=== PATIENT | male | born 1970 | race Hispanic/Latino ===

== ENCOUNTER 2021-12-11 07:01 | Day surgery (SDC) | payer MEDICAID ==
[2021-12-10 13:22] LABS: INR 0.96 (0.85-1.15); PROTHROMBIN TIME 10.5 SEC (9.6-11.6)
[2021-12-10 13:24] LABS: PARTIAL THROMBOPLASTIN TIME 28.2 SEC (26.3-35.5)
[~2021-12-11] VITALS: Ht 190.5 cm; Wt 204.1 kg
[~2021-12-11 07:01] MED LIST: 0.9% NACL 500ML IV.SOLN 500 ML IV SCH; 0.9%NACL 1000ML 1,000 ML IV ONE; ALBU8.5H8 IH; ATOR10TA69 PO; BUDE10.2 IH; CEFAZOLIN SODIUM 1 GM VIAL IVP SCH; FLUT15.845 NS; LOSA25TA41 PO; METF-446 PO; PREG300C19 PO; TIOT18CA3 IH
[2021-12-11 07:18] VITALS: BP 136/66
[2021-12-11] MEDS ORDERED: SODIUM TETRADECYL SULFATE 30 MG/ML VIAL IV SCH (07:30)
[2021-12-11] MEDS ORDERED: LIDOCAINE PF 100MG/5ML (2%) SYRINGE 5ML ONE (07:45)
[2021-12-11] MEDS ORDERED: SUCCINYLCHOLINE CHLORIDE 20 MG/ML 10 ML VIAL ONE (07:45)
[2021-12-11] MEDS ORDERED: PROPOFOL 10 MG/ML 20ML VIAL IV ONE (07:46)
[2021-12-11] MEDS ORDERED: ONDANSETRON 4MG INJ ONE (07:46)
[2021-12-11] MEDS ORDERED: GLYCOPYRROLATE 1 MG/5 ML SYRINGE ONE (07:46)
[2021-12-11] MEDS ORDERED: NEOSTIGMINE 5MG/5ML SYR IV ONE (07:46)
[2021-12-11] MEDS ORDERED: DEXAMETHASONE SOD PHOSPHATE 10MG/ML 1ML VIAL ONE (07:46)
[2021-12-11] MEDS ORDERED: MIDAZOLAM HCL 1 MG/ML 2ML VIAL ONE (07:46)
[2021-12-11] MEDS ORDERED: FENTANYL CITRATE PF 50 MCG/1 ML 2ML VIAL ONE (07:47)
[2021-12-11] MEDS ORDERED: ROCURONIUM 10MG/1ML SYR 10 MG/ML ML ONE (07:47)
[2021-12-11] MEDS ORDERED: POLY17PO4 PO (11:27)
[2021-12-11] MEDS ORDERED: NA P133E4 RC (11:27)
== END 2021-12-11 08:45 | disposition home or self-care (01) ==
LOC: DAH 07:01
PROVIDERS: ATTEND Surgery
DX: R13.10 Dysphagia, unspecified (principal); R11.0 Nausea; K59.00 Constipation, unspecified; R63.4 Abnormal weight loss; Z79.01 Long term (current) use of anticoagulants; Z79.899 Other long term (current) drug therapy; Z53.8 Procedure and treatment not carried out for other reasons
CPT/HCPCS: 87635; 85610; 85730; 36415 ×2; 99284; 80053; 83690; 85025; 82948; C9803; J3490 ×2; J2710; J0330; J7030; 93005; J1100; J2001; J2250; J2405; J2704; J3010

== ENCOUNTER 2021-12-11 09:15 | Emergency (ER) | payer MEDICAID ==
[~2021-12-11] VITALS: Ht 190.5 cm; Wt 204.1 kg
[~2021-12-11 09:15] MED LIST changes: -0.9% NACL 500ML IV.SOLN 500 ML IV SCH; -0.9%NACL 1000ML 1,000 ML IV ONE; -CEFAZOLIN SODIUM 1 GM VIAL IVP SCH
[2021-12-11 09:19] VITALS: BP 127/81
[2021-12-11 10:39] LABS: BASOPHILS % (AUTO) 0.4 % (0.0-5.0); EOSINOPHILS % (AUTO) 0.6 % (0.0-8.0); HEMATOCRIT 41.2 % (42-54); LYMPHOCYTES % (AUTO) 16.6 % (21.0-51.0); MEAN CORPUSCULAR HEMOGLOBIN 29.3 pg (27.0-33.0); MEAN CORPUSCULAR HGB CONC 32.5 g/dL (32.0-36.0); MONOCYTES % (AUTO) 5.9 % (3.0-13.0); PLATELET COUNT (AUTO) 227 K/uL (130-400); RED BLOOD CELL COUNT(AUTO) 4.58 MIL/uL (4.50-6.20); RED CELL DISTRIBUTION WIDTH 12.3 % (11.0-15.5); WHITE BLOOD COUNT (AUTO) 9.5 K/uL (4.8-10.8)
[2021-12-11 11:00] LABS: CREATININE 1.4 mg/dL (0.5-1.5); POTASSIUM 4.5 mmol/L (3.5-5.1)
[2021-12-11 11:07] LABS: ALBUMIN 3.4 g/dL (3.5-5.0); BILIRUBIN,TOTAL 0.4 mg/dL (0.2-1.0); TOTAL PROTEIN, SERUM 7.4 g/dL (6.0-8.3)
[2021-12-11] MEDS ORDERED: POLY17PO4 PO (11:27)
[2021-12-11] MEDS ORDERED: NA P133E4 RC (11:27)
== END 2021-12-11 11:50 | disposition home or self-care (01) ==
LOC: EDH 09:15
DX: K59.00 Constipation, unspecified (principal); J45.909 Unspecified asthma, uncomplicated; E11.9 Type 2 diabetes mellitus without complications; I10 Essential (primary) hypertension; Z88.1 Allergy status to other antibiotic agents; Z88.2 Allergy status to sulfonamides; Z79.51 Long term (current) use of inhaled steroids; Z79.84 Long term (current) use of oral hypoglycemic drugs; Z79.899 Other long term (current) drug therapy
CPT/HCPCS: 36415; 80053; 83690; 85025

== ENCOUNTER 2022-02-19 06:09 | Day surgery (SDC) | payer MEDICAID ==
[~2022-02-19] VITALS: Ht 190.5 cm; Wt 204.1 kg
[2022-02-19] VITALS (12 sets, daily range): BP systolic 113–156; BP diastolic 53–73
[~2022-02-19 06:09] MED LIST changes: +0.9% NACL 500ML IV.SOLN 500 ML IV SCH; -ATOR10TA69 PO; -FLUT15.845 NS; -TIOT18CA3 IH
[2022-02-19] MEDS ORDERED: SODIUM TETRADECYL SULFATE 30 MG/ML VIAL IV SCH (08:30)
[2022-02-19] MEDS ORDERED: PROPOFOL 10 MG/ML 20ML VIAL IV ONE (09:33)
[2022-02-19] MEDS ORDERED: SUCCINYLCHOLINE 200MG/10ML SYR ONE (09:34)
[2022-02-19] MEDS ORDERED: MEPERIDINE-PF 25 MG/ML SYG ONE (09:47)
== END 2022-02-19 11:00 | disposition home or self-care (01) ==
LOC: DAH 06:09 → ENDO 06:09
PROVIDERS: ATTEND Surgery
DX: K21.9 Gastro-esophageal reflux disease without esophagitis (principal); M79.3 Panniculitis, unspecified; I10 Essential (primary) hypertension; E11.9 Type 2 diabetes mellitus without complications; J45.909 Unspecified asthma, uncomplicated; G47.30 Sleep apnea, unspecified; Z98.84 Bariatric surgery status; Z88.1 Allergy status to other antibiotic agents; Z98.890 Other specified postprocedural states
CPT/HCPCS: 87426 ×3; 43236; 82948 ×2; J0330; J3490 ×2; A4215; A4223; A4222; A4221; A4663; A4606; J2175; J2704

== ENCOUNTER 2022-04-12 07:16 | Day surgery (SDC) | payer MEDICAID ==
[2022-04-09 16:40] LABS: CREATININE 1.3 mg/dL (0.5-1.5); POTASSIUM 4.2 mmol/L (3.5-5.1)
[2022-04-12] VITALS (9 sets, daily range): BP systolic 103–158; BP diastolic 57–80
[~2022-04-12] VITALS: Ht 190.5 cm; Wt 217.7 kg
[~2022-04-12 07:16] MED LIST changes: -0.9% NACL 500ML IV.SOLN 500 ML IV SCH; +ATOR10TA69 PO
[2022-04-12] MEDS ORDERED: SODIUM TETRADECYL SULFATE 30 MG/ML 2 ML VIAL IV SCH (08:00)
[2022-04-12] MEDS ORDERED: 0.9%NACL 1000ML 1,000 ML IV ONE (08:15)
[2022-04-12] MEDS ORDERED: PROPOFOL 10 MG/ML 20ML VIAL IV ONE ×2 (10:18→10:28)
[2022-04-12] MEDS ORDERED: MIDAZOLAM HCL 1 MG/ML 2ML VIAL ONE (10:18)
[2022-04-12] MEDS ORDERED: FENTANYL CITRATE PF 50 MCG/1 ML 2ML VIAL ONE (10:18)
[2022-04-12] MEDS ORDERED: SUCCINYLCHOLINE 200MG/10ML SYR ONE (10:20)
[2022-04-12] MEDS ORDERED: IPRATROPIUM/ALBUTEROL SULFATE 3 ML SOLUTION IH ONE (10:54)
== END 2022-04-12 11:45 | disposition home or self-care (01) ==
LOC: ENDO 07:16 → DAH 07:16 → ENDO 11:45
PROVIDERS: ATTEND Surgery
DX: K21.9 Gastro-esophageal reflux disease without esophagitis (principal); R13.10 Dysphagia, unspecified; I10 Essential (primary) hypertension; E66.01 Morbid (severe) obesity due to excess calories; E11.9 Type 2 diabetes mellitus without complications; G47.30 Sleep apnea, unspecified; J45.909 Unspecified asthma, uncomplicated; Z90.49 Acquired absence of other specified parts of digestive tract; Z98.84 Bariatric surgery status; Z90.89 Acquired absence of other organs; Z98.890 Other specified postprocedural states; Z79.899 Other long term (current) drug therapy; Z82.49 Family history of ischemic heart disease and other diseases of the circulatory system; Z83.3 Family history of diabetes mellitus; Z68.44 Body mass index [BMI] 60.0-69.9, adult
CPT/HCPCS: 87426; 80048; 36415; 93005; 43236; 82948; 94640; J3010; J0330; J7030 ×2; J2250; J3490 ×3; A4620; A4215 ×2; A4223; A4657; A4222; A4221; A4663; A4606; J2704

== ENCOUNTER 2022-04-26 07:53 | Inpatient (IN) | payer MEDICAID ==
[2022-04-22 10:34] LABS: BASOPHILS % (AUTO) 0.6 % (0.0-5.0); EOSINOPHILS % (AUTO) 0.6 % (0.0-8.0); HEMATOCRIT 39.1 % (42-54); LYMPHOCYTES % (AUTO) 17.7 % (21.0-51.0); MEAN CORPUSCULAR HEMOGLOBIN 28.8 pg (27.0-33.0); MEAN CORPUSCULAR HGB CONC 31.7 g/dL (32.0-36.0); MEAN CORPUSCULAR VOLUME 90.9 fL (79-99); MONOCYTES % (AUTO) 6.5 % (3.0-13.0); PLATELET COUNT (AUTO) 188 K/uL (130-400); RED CELL DISTRIBUTION WIDTH 13.1 % (11.0-15.5); WHITE BLOOD COUNT (AUTO) 6.3 K/uL (4.8-10.8)
[2022-04-22 10:42] LABS: APPEARANCE,URINE CLOUDY (CLEAR); BILIRUBIN,URINE NEGATIVE (NEGATIVE); COLOR,URINE YELLOW (YELLOW); GLUCOSE, URINE (UA) NEGATIVE (NEGATIVE); KETONES,URINE NEGATIVE (NEGATIVE); LEUKOCYTE ESTERASE ,URINE MODERATE Leu/uL (NEGATIVE); NITRATE,URINE POSITIVE (NEGATIVE); OCCULT BLOOD,URINE NEGATIVE (NEGATIVE); PROTEIN,URINE NEGATIVE (NEGATIVE); UROBILINOGEN,URINE 0.2 mg/dL (0.2-1.0)
[2022-04-22 10:45] LABS: INR 0.98 (0.85-1.15); PROTHROMBIN TIME 10.7 SEC (9.6-11.6)
[2022-04-22 10:46] LABS: PARTIAL THROMBOPLASTIN TIME 27.9 SEC (26.3-35.5)
[2022-04-22 10:47] LABS: POTASSIUM 4.7 mmol/L (3.5-5.1)
[2022-04-22 11:51] LABS: BACTERIA,URINE Moderate /HPF (None Seen)
[2022-04-23 10:09] VITALS: BP 144/71
[2022-04-26] VITALS (17 sets, daily range): BP systolic 78–142; BP diastolic 41–70
[~2022-04-26] VITALS: Ht 190.5 cm; Wt 189.6 kg
[~2022-04-26 07:53] MED LIST changes: +0.9%NACL 1000ML 1,000 ML IV SCH; +CEFAZOLIN SODIUM 1 GM VIAL IVP SCH
[2022-04-26] MEDS ORDERED: SUCCINYLCHOLINE CHLORIDE 20 MG/ML 10 ML VIAL ONE (09:32)
[2022-04-26] MEDS ORDERED: LIDOCAINE PF 100MG/5ML (2%) SYRINGE 5ML ONE (09:32)
[2022-04-26] MEDS ORDERED: GLYCOPYRROLATE 1 MG/5 ML SYRINGE ONE (09:33)
[2022-04-26] MEDS ORDERED: MIDAZOLAM HCL 1 MG/ML 2ML VIAL ONE (09:33)
[2022-04-26] MEDS ORDERED: DEXAMETHASONE SOD PHOSPHATE 10MG/ML 1ML VIAL ONE (09:33)
[2022-04-26] MEDS ORDERED: FENTANYL CITRATE PF 50 MCG/1 ML 2ML VIAL ONE (09:34)
[2022-04-26] MEDS ORDERED: ROCURONIUM 10MG/1ML SYR 10 MG/ML ML ONE ×2 (09:34→11:34)
[2022-04-26] MEDS ORDERED: NEOSTIGMINE 5MG/5ML SYR IV ONE (09:34)
[2022-04-26] MEDS ORDERED: PROPOFOL 10 MG/ML 20ML VIAL IV ONE (09:34)
[2022-04-26] MEDS ORDERED: ONDANSETRON 4MG INJ ONE (09:34)
[2022-04-26] MEDS ORDERED: CEFAZOLIN SODIUM 3 GM VIAL IV ONE (09:45)
[2022-04-26] MEDS ORDERED: MORPHINE PF 100MG/10ML AMP IV ONE (10:47)
[2022-04-26] MEDS ORDERED: EPHEDRINE SULFATE 50 MG/ML AMPULE ONE (11:16)
[2022-04-26] MEDS ORDERED: SUGAMMADEX SODIUM 200 MG/2 ML VIAL IV ONE (13:29)
[2022-04-26] MEDS ORDERED: MEPERIDINE-PF 25 MG/ML SYG ONE ×2 (14:45→14:56)
[2022-04-26] MEDS ORDERED: MORPHINE 4 MG SYG IVP PRN (17:30)
[2022-04-26] MEDS ORDERED: 0.9%NACL 1000ML 1,000 ML IV SCH (17:30)
[2022-04-26] MEDS: METFORMIN HCL 500 MG TABLET PO SCH (17:52)
[2022-04-26] MEDS: CEFAZOLIN SODIUM 1 GM VIAL IVP SCH (17:52)
[2022-04-26] MEDS: KETOROLAC 30MG VIAL (30MG/ML) IVP PRN (17:52)
[2022-04-26] MEDS: PROAIR IH SCH (19:48)
[2022-04-26] MEDS: SYMBICORT 160/4.5 IH SCH (19:49)
[2022-04-26] MEDS ORDERED: NON-FORMULARY MEDICATION 1 EACH (Metformin HCl 1,000 MG) PO SCH (21:00)
[2022-04-26] MEDS ORDERED: ALBUTEROL INHALER 90MCG/INH IH SCH (21:00)
[2022-04-26] MEDS ORDERED: SUB PER P&T FOR ASTHMA OR COPD RECOMMENDATION IH SCH (21:00)
[2022-04-26] MEDS: ONDANSETRON 4MG INJ IVP PRN (23:14)
[2022-04-27] VITALS (53 sets, daily range): BP systolic 79–124; BP diastolic 33–59
[2022-04-27] MEDS: CEFAZOLIN SODIUM 1 GM VIAL IVP SCH ×3 (01:00→12:49)
[2022-04-27] MEDS ORDERED: LACTATED RINGERS 1000ML 1,000 ML IV ONE (02:40)
[2022-04-27 02:51] LABS: HEMATOCRIT 24.2 % (42-54); MEAN CORPUSCULAR HEMOGLOBIN 29.2 pg (27.0-33.0); MEAN CORPUSCULAR HGB CONC 32.6 g/dL (32.0-36.0); MEAN CORPUSCULAR VOLUME 89.3 fL (79-99); RED BLOOD CELL COUNT(AUTO) 2.71 MIL/uL (4.50-6.20); RED CELL DISTRIBUTION WIDTH 13.4 % (11.0-15.5); WHITE BLOOD COUNT (AUTO) 15.8 K/uL (4.8-10.8)
[2022-04-27] MEDS ORDERED: LACTATED RINGERS 1000ML 4,000 ML IV ONE (03:10)
[2022-04-27] MEDS: LACTATED RINGERS 1000ML 1,000 ML IV SCH ×4 (03:40→23:00)
[2022-04-27] MEDS: KETOROLAC 30MG VIAL (30MG/ML) IVP PRN ×2 (03:45→09:04)
[2022-04-27] MEDS: ONDANSETRON 4MG INJ IVP PRN (05:47)
[2022-04-27] MEDS: METFORMIN HCL 500 MG TABLET PO SCH ×2 (08:00→17:00)
[2022-04-27] MEDS ORDERED: LOSARTAN 25 MG TABLET PO SCH (09:00)
[2022-04-27] MEDS ORDERED: DOCUSATE SODIUM 100 MG CAP PO PRN (12:00)
[2022-04-27] MEDS ORDERED: IPRATROPIUM 0.5 MG/2.5 ML INH IH PRN (12:00)
[2022-04-27 14:04] LABS: INR 1.03 (0.85-1.15); PROTHROMBIN TIME 11.2 SEC (9.6-11.6)
[2022-04-27] MEDS: INSULIN HUMULIN R 100 UNIT/ML 3ML SQ SCH ×2 (16:30→20:13)
[2022-04-27 18:06] LABS: HEMATOCRIT 23.8 % (42-54)
[2022-04-27] MEDS: SYMBICORT 160/4.5 IH SCH (20:13)
[2022-04-27] MEDS: PROAIR IH SCH (20:13)
[2022-04-27] MEDS ORDERED: KETOROLAC 30MG VIAL (30MG/ML) ONE (20:47)
[2022-04-27] MEDS ORDERED: KETOROLAC 30MG VIAL (30MG/ML) IM SCH (21:00)
[2022-04-27] MEDS ORDERED: ACETAMINOPHEN 325 MG TAB PO PRN (21:00)
[2022-04-27] MEDS ORDERED: KETOROLAC 30MG VIAL (30MG/ML) IV PRN (21:30)
[2022-04-27 22:18] LABS: HEMATOCRIT 21.8 % (42-54)
[2022-04-28] VITALS (31 sets, daily range): BP systolic 97–138; BP diastolic 46–99
[2022-04-28 01:03] LABS: HEMATOCRIT 20.9 % (42-54)
[2022-04-28] MEDS: CEFAZOLIN SODIUM 1 GM VIAL IVP SCH ×3 (01:13→17:06)
[2022-04-28] MEDS ORDERED: KETOROLAC 30MG VIAL (30MG/ML) IV SCH (03:00)
[2022-04-28 03:46] LABS: HEMATOCRIT 20.7 % (42-54)
[2022-04-28 04:42] LABS: MEAN CORPUSCULAR HEMOGLOBIN 28.9 pg (27.0-33.0); MEAN CORPUSCULAR HGB CONC 33.5 g/dL (32.0-36.0); MEAN CORPUSCULAR VOLUME 86.2 fL (79-99); RED BLOOD CELL COUNT(AUTO) 2.39 MIL/uL (4.50-6.20); WHITE BLOOD COUNT (AUTO) 8.2 K/uL (4.8-10.8)
[2022-04-28 04:44] LABS: CREATININE 1.6 mg/dL (0.5-1.5); POTASSIUM 4.1 mmol/L (3.5-5.1)
[2022-04-28] MEDS: LACTATED RINGERS 1000ML 1,000 ML IV SCH ×2 (05:30→12:36)
[2022-04-28] MEDS: INSULIN HUMULIN R 100 UNIT/ML 3ML SQ SCH ×4 (06:08→20:52)
[2022-04-28] MEDS: ACETAMINOPHEN 325 MG TAB PO PRN ×2 (07:09→17:34)
[2022-04-28 09:01] LABS: HEMATOCRIT 21.7 % (42-54)
[2022-04-28] MEDS: FENTANYL 12 MCG/HR PATCH TD SCH (11:10)
[2022-04-28 15:07] LABS: HEMATOCRIT 22.1 % (42-54)
[2022-04-28] MEDS: GABAPENTIN 100 MG CAPSULE PO SCH (20:52)
[2022-04-28] MEDS: SYMBICORT 160/4.5 IH SCH (21:00)
[2022-04-28] MEDS: PROAIR IH SCH (21:00)
[2022-04-28 21:07] LABS: HEMATOCRIT 21.7 % (42-54)
[2022-04-29] VITALS (30 sets, daily range): BP systolic 107–146; BP diastolic 48–77
[2022-04-29] MEDS: CEFAZOLIN SODIUM 1 GM VIAL IVP SCH ×3 (03:00→17:19)
[2022-04-29 04:03] LABS: BASOPHILS % (AUTO) 0.4 % (0.0-5.0); EOSINOPHILS % (AUTO) 0.6 % (0.0-8.0); HEMATOCRIT 23.6 % (42-54); MEAN CORPUSCULAR HEMOGLOBIN 28.7 pg (27.0-33.0); MEAN CORPUSCULAR HGB CONC 33.1 g/dL (32.0-36.0); MEAN CORPUSCULAR VOLUME 86.8 fL (79-99); MONOCYTES % (AUTO) 8.4 % (3.0-13.0); NEUTROPHILS % (AUTO) 72.7 % (40.0-77.0); PLATELET COUNT (AUTO) 140 K/uL (130-400); RED BLOOD CELL COUNT(AUTO) 2.72 MIL/uL (4.50-6.20); RED CELL DISTRIBUTION WIDTH 14.8 % (11.0-15.5); WHITE BLOOD COUNT (AUTO) 7.8 K/uL (4.8-10.8)
[2022-04-29 04:09] LABS: ALBUMIN 2.4 g/dL (3.5-5.0); POTASSIUM 4.1 mmol/L (3.5-5.1); TOTAL PROTEIN, SERUM 5.5 g/dL (6.0-8.3)
[2022-04-29] MEDS: ACETAMINOPHEN 325 MG TAB PO PRN ×3 (04:28→21:34)
[2022-04-29] MEDS: INSULIN HUMULIN R 100 UNIT/ML 3ML SQ SCH ×4 (06:06→21:00)
[2022-04-29] MEDS: GABAPENTIN 100 MG CAPSULE PO SCH ×3 (08:22→21:03)
[2022-04-29 08:39] LABS: HEMATOCRIT 23.7 % (42-54)
[2022-04-29] MEDS ORDERED: SIMETHICONE 40 MG/0.6 ML ML PO SCH (09:00)
[2022-04-29] MEDS: SIMETHICONE 80 MG TAB.CHEW PO SCH ×3 (09:22→21:03)
[2022-04-29] MEDS: ONDANSETRON 4MG INJ IVP PRN (12:08)
[2022-04-29 15:08] LABS: HEMATOCRIT 24.6 % (42-54)
[2022-04-29] MEDS: SYMBICORT 160/4.5 IH SCH (21:00)
[2022-04-29] MEDS: PROAIR IH SCH (21:00)
[2022-04-30] VITALS (28 sets, daily range): BP systolic 85–150; BP diastolic 44–99
[2022-04-30] MEDS: CEFAZOLIN SODIUM 1 GM VIAL IVP SCH ×3 (01:12→18:18)
[2022-04-30 03:32] LABS: BASOPHILS % (AUTO) 0.4 % (0.0-5.0); EOSINOPHILS % (AUTO) 1.4 % (0.0-8.0); HEMATOCRIT 23.3 % (42-54); LYMPHOCYTES % (AUTO) 20.2 % (21.0-51.0); MEAN CORPUSCULAR HEMOGLOBIN 28.3 pg (27.0-33.0); MEAN CORPUSCULAR HGB CONC 32.2 g/dL (32.0-36.0); MEAN CORPUSCULAR VOLUME 87.9 fL (79-99); MONOCYTES % (AUTO) 7.7 % (3.0-13.0); NEUTROPHILS % (AUTO) 69.4 % (40.0-77.0); PLATELET COUNT (AUTO) 142 K/uL (130-400); RED BLOOD CELL COUNT(AUTO) 2.65 MIL/uL (4.50-6.20); RED CELL DISTRIBUTION WIDTH 14.8 % (11.0-15.5); WHITE BLOOD COUNT (AUTO) 6.9 K/uL (4.8-10.8)
[2022-04-30] MEDS: ACETAMINOPHEN 325 MG TAB PO PRN ×2 (03:36→16:24)
[2022-04-30] MEDS: INSULIN HUMULIN R 100 UNIT/ML 3ML SQ SCH ×4 (06:48→20:50)
[2022-04-30] MEDS: GABAPENTIN 100 MG CAPSULE PO SCH ×3 (09:17→21:07)
[2022-04-30] MEDS: SIMETHICONE 80 MG TAB.CHEW PO SCH ×3 (09:17→21:07)
[2022-04-30 12:02] LABS: HEMATOCRIT 26.7 % (42-54)
[2022-04-30 19:56] LABS: HEMATOCRIT 24.2 % (42-54)
[2022-04-30] MEDS: PROAIR IH SCH (22:00)
[2022-04-30] MEDS: SYMBICORT 160/4.5 IH SCH (22:00)
[2022-05-01] MEDS: CEFAZOLIN SODIUM 1 GM VIAL IVP SCH ×3 (02:12→18:13)
[2022-05-01 04:30] VITALS: BP 136/71
[2022-05-01 04:58] LABS: BASOPHILS % (AUTO) 0.5 % (0.0-5.0); EOSINOPHILS % (AUTO) 1.8 % (0.0-8.0); HEMATOCRIT 24.1 % (42-54); LYMPHOCYTES % (AUTO) 16.7 % (21.0-51.0); MEAN CORPUSCULAR HEMOGLOBIN 28.9 pg (27.0-33.0); MEAN CORPUSCULAR HGB CONC 32.4 g/dL (32.0-36.0); MEAN CORPUSCULAR VOLUME 89.3 fL (79-99); MONOCYTES % (AUTO) 8.5 % (3.0-13.0); NEUTROPHILS % (AUTO) 71.2 % (40.0-77.0); PLATELET COUNT (AUTO) 178 K/uL (130-400); RED CELL DISTRIBUTION WIDTH 14.7 % (11.0-15.5); WHITE BLOOD COUNT (AUTO) 7.8 K/uL (4.8-10.8)
[2022-05-01 05:13] LABS: CREATININE 0.9 mg/dL (0.5-1.5); POTASSIUM 4.1 mmol/L (3.5-5.1)
[2022-05-01] MEDS: INSULIN HUMULIN R 100 UNIT/ML 3ML SQ SCH ×4 (06:32→20:34)
[2022-05-01 07:05] VITALS: BP 126/60
[2022-05-01] MEDS: SIMETHICONE 80 MG TAB.CHEW PO SCH ×3 (09:13→20:35)
[2022-05-01] MEDS: GABAPENTIN 100 MG CAPSULE PO SCH ×3 (09:14→20:35)
[2022-05-01 11:05] VITALS: BP 136/72
[2022-05-01 13:45] LABS: HEMATOCRIT 24.8 % (42-54)
[2022-05-01] MEDS: FENTANYL 12 MCG/HR PATCH TD SCH (14:24)
[2022-05-01 16:10] VITALS: BP 145/75
[2022-05-01] MEDS: FUROSEMIDE 20MG VIAL IV SCH (16:29)
[2022-05-01 20:40] VITALS: BP 133/64
[2022-05-01] MEDS: PROAIR IH SCH (20:44)
[2022-05-01] MEDS: SYMBICORT 160/4.5 IH SCH (20:44)
[2022-05-01 23:50] VITALS: BP 123/59
[2022-05-02 00:37] LABS: HEMATOCRIT 23.3 % (42-54)
[2022-05-02] MEDS: CEFAZOLIN SODIUM 1 GM VIAL IVP SCH ×3 (01:17→18:39)
[2022-05-02] MEDS: FUROSEMIDE 20MG VIAL IV SCH ×2 (02:34→14:45)
[2022-05-02 03:57] VITALS: BP 126/65
[2022-05-02 05:11] LABS: HEMATOCRIT 24.9 % (42-54)
[2022-05-02 05:12] LABS: POTASSIUM 3.7 mmol/L (3.5-5.1)
[2022-05-02] MEDS: INSULIN HUMULIN R 100 UNIT/ML 3ML SQ SCH ×4 (05:42→19:57)
[2022-05-02 07:10] VITALS: BP 123/51
[2022-05-02] MEDS: SIMETHICONE 80 MG TAB.CHEW PO SCH ×3 (09:21→19:55)
[2022-05-02] MEDS: GABAPENTIN 100 MG CAPSULE PO SCH ×3 (09:21→19:55)
[2022-05-02] MEDS ORDERED: LEVOFLOXACIN 750 MG/D5W 150ML BAG IVPB SCH (11:00)
[2022-05-02 12:00] VITALS: BP 122/50
[2022-05-02 16:20] VITALS: BP 124/65
[2022-05-02] MEDS: ACETAMINOPHEN 325 MG TAB PO PRN (18:38)
[2022-05-02 20:06] VITALS: BP 126/75
[2022-05-02] MEDS: SYMBICORT 160/4.5 IH SCH (20:08)
[2022-05-02] MEDS: PROAIR IH SCH (20:08)
[2022-05-02 23:41] VITALS: BP 116/60
[2022-05-03 01:06] LABS: HEMATOCRIT 24.3 % (42-54)
[2022-05-03] MEDS: CEFAZOLIN SODIUM 1 GM VIAL IVP SCH ×3 (01:30→19:25)
[2022-05-03 03:54] VITALS: BP 123/62
[2022-05-03] MEDS: INSULIN HUMULIN R 100 UNIT/ML 3ML SQ SCH ×4 (06:22→21:00)
[2022-05-03 07:50] VITALS: BP 114/60
[2022-05-03 11:33] VITALS: BP 121/66
[2022-05-03 12:48] LABS: HEMATOCRIT 25.3 % (42-54)
[2022-05-03] MEDS: SIMETHICONE 80 MG TAB.CHEW PO SCH ×3 (12:55→20:06)
[2022-05-03] MEDS: GABAPENTIN 100 MG CAPSULE PO SCH ×3 (12:55→20:07)
[2022-05-03] MEDS: FUROSEMIDE 20 MG TABLET PO SCH (12:55)
[2022-05-03 16:58] VITALS: BP 123/65
[2022-05-03 20:06] VITALS: BP 112/59
[2022-05-03] MEDS: SYMBICORT 160/4.5 IH SCH (20:19)
[2022-05-03] MEDS: PROAIR IH SCH (20:20)
[2022-05-04] VITALS: BP 113/58
[2022-05-04 00:54] LABS: HEMATOCRIT 25.2 % (42-54)
[2022-05-04] MEDS: CEFAZOLIN SODIUM 1 GM VIAL IVP SCH ×3 (02:13→18:10)
[2022-05-04 04:00] VITALS: BP 121/68
[2022-05-04] MEDS: ACETAMINOPHEN 325 MG TAB PO PRN ×2 (04:34→15:03)
[2022-05-04] MEDS: INSULIN HUMULIN R 100 UNIT/ML 3ML SQ SCH ×4 (06:37→21:20)
[2022-05-04 08:00] VITALS: BP 123/75
[2022-05-04] MEDS: SIMETHICONE 80 MG TAB.CHEW PO SCH ×3 (09:42→21:19)
[2022-05-04] MEDS: FUROSEMIDE 20 MG TABLET PO SCH (09:42)
[2022-05-04] MEDS: GABAPENTIN 100 MG CAPSULE PO SCH ×3 (09:43→21:19)
[2022-05-04 11:51] LABS: HEMATOCRIT 27.3 % (42-54)
[2022-05-04 12:00] VITALS: BP 105/61
[2022-05-04 16:00] VITALS: BP 114/57
[2022-05-04] MEDS: ACETAMINOPHEN WITH CODEINE 1 TAB TAB PO PRN (18:10)
[2022-05-04 20:00] VITALS: BP 126/73
[2022-05-04] MEDS: SYMBICORT 160/4.5 IH SCH (21:00)
[2022-05-04] MEDS: PROAIR IH SCH (21:00)
[2022-05-05] VITALS: BP 128/58
[2022-05-05] MEDS: CEFAZOLIN SODIUM 1 GM VIAL IVP SCH ×3 (02:45→17:57)
[2022-05-05 04:00] VITALS: BP 131/64
[2022-05-05 06:05] LABS: BASOPHILS % (AUTO) 0.4 % (0.0-5.0); EOSINOPHILS % (AUTO) 2.6 % (0.0-8.0); HEMATOCRIT 24.9 % (42-54); MEAN CORPUSCULAR HEMOGLOBIN 28.7 pg (27.0-33.0); MEAN CORPUSCULAR HGB CONC 32.5 g/dL (32.0-36.0); MEAN CORPUSCULAR VOLUME 88.3 fL (79-99); MONOCYTES % (AUTO) 8.1 % (3.0-13.0); NEUTROPHILS % (AUTO) 72.8 % (40.0-77.0); PLATELET COUNT (AUTO) 260 K/uL (130-400); RED BLOOD CELL COUNT(AUTO) 2.82 MIL/uL (4.50-6.20); RED CELL DISTRIBUTION WIDTH 14.6 % (11.0-15.5); WHITE BLOOD COUNT (AUTO) 7.9 K/uL (4.8-10.8)
[2022-05-05] MEDS: ACETAMINOPHEN WITH CODEINE 1 TAB TAB PO PRN ×2 (06:16→18:12)
[2022-05-05 06:19] LABS: CREATININE 0.9 mg/dL (0.5-1.5); POTASSIUM 3.9 mmol/L (3.5-5.1)
[2022-05-05 07:10] VITALS: BP 108/59
[2022-05-05] MEDS: INSULIN HUMULIN R 100 UNIT/ML 3ML SQ SCH ×4 (07:30→21:09)
[2022-05-05] MEDS: FUROSEMIDE 20 MG TABLET PO SCH (08:37)
[2022-05-05] MEDS: GABAPENTIN 100 MG CAPSULE PO SCH ×3 (08:38→21:06)
[2022-05-05] MEDS: SIMETHICONE 80 MG TAB.CHEW PO SCH ×3 (08:38→21:06)
[2022-05-05] MEDS: ACETAMINOPHEN 325 MG TAB PO PRN (11:00)
[2022-05-05 11:10] VITALS: BP 134/60
[2022-05-05 15:15] VITALS: BP 108/44
[2022-05-05] MEDS: PROAIR IH SCH (21:06)
[2022-05-05] MEDS: SYMBICORT 160/4.5 IH SCH (21:07)
[2022-05-05 21:10] VITALS: BP 130/58
[2022-05-06 00:27] VITALS: BP 106/50
[2022-05-06] MEDS: CEFAZOLIN SODIUM 1 GM VIAL IVP SCH ×2 (01:21→09:12)
[2022-05-06 04:00] VITALS: BP 133/62
[2022-05-06] MEDS: INSULIN HUMULIN R 100 UNIT/ML 3ML SQ SCH ×2 (05:41→11:26)
[2022-05-06] MEDS: ACETAMINOPHEN WITH CODEINE 1 TAB TAB PO PRN (06:56)
[2022-05-06 07:10] VITALS: BP 120/57
[2022-05-06] MEDS: SIMETHICONE 80 MG TAB.CHEW PO SCH (09:11)
[2022-05-06] MEDS: FUROSEMIDE 20 MG TABLET PO SCH (09:12)
[2022-05-06] MEDS: GABAPENTIN 100 MG CAPSULE PO SCH (09:12)
[2022-05-06 11:10] VITALS: BP 144/63
== END 2022-05-06 12:59 | disposition home or self-care (01) | DRG 385 ==
LOC: DAH 07:53 → DAHIP 07:54 → OBSVTOIN 07:54 → 4CH 16:45 → 2BH 04-27 09:47 → 3AH 04-30 19:21
PROVIDERS: ADMIT Surgery; ATTEND Surgery
PROC: 5A09357 Assistance with Respiratory Ventilation, Less than 24 Consecutive Hours, Continuous Positive Airway Pressure (ICD-10-PCS; 2022-04-26)
PROC: 0JB80ZZ Excision of Abdomen Subcutaneous Tissue and Fascia, Open Approach (ICD-10-PCS; principal; 2022-04-26 10:18)
PROC: 5A09357 Assistance with Respiratory Ventilation, Less than 24 Consecutive Hours, Continuous Positive Airway Pressure (ICD-10-PCS; 2022-04-27)
PROC: 30233N1 Transfusion of Nonautologous Red Blood Cells into Peripheral Vein, Percutaneous Approach (ICD-10-PCS; 2022-04-27)
PROC: 5A09357 Assistance with Respiratory Ventilation, Less than 24 Consecutive Hours, Continuous Positive Airway Pressure (ICD-10-PCS; 2022-04-28)
PROC: 5A09357 Assistance with Respiratory Ventilation, Less than 24 Consecutive Hours, Continuous Positive Airway Pressure (ICD-10-PCS; 2022-04-29)
PROC: 5A09357 Assistance with Respiratory Ventilation, Less than 24 Consecutive Hours, Continuous Positive Airway Pressure (ICD-10-PCS; 2022-04-30)
PROC: 5A09357 Assistance with Respiratory Ventilation, Less than 24 Consecutive Hours, Continuous Positive Airway Pressure (ICD-10-PCS; 2022-05-01)
PROC: 5A09357 Assistance with Respiratory Ventilation, Less than 24 Consecutive Hours, Continuous Positive Airway Pressure (ICD-10-PCS; 2022-05-02)
PROC: 5A09357 Assistance with Respiratory Ventilation, Less than 24 Consecutive Hours, Continuous Positive Airway Pressure (ICD-10-PCS; 2022-05-03)
PROC: 5A09357 Assistance with Respiratory Ventilation, Less than 24 Consecutive Hours, Continuous Positive Airway Pressure (ICD-10-PCS; 2022-05-04)
PROC: 5A09357 Assistance with Respiratory Ventilation, Less than 24 Consecutive Hours, Continuous Positive Airway Pressure (ICD-10-PCS; 2022-05-05)
DX: M79.3 Panniculitis, unspecified (principal); J96.01 Acute respiratory failure with hypoxia; D62 Acute posthemorrhagic anemia; Z68.43 Body mass index [BMI] 50.0-59.9, adult; E11.65 Type 2 diabetes mellitus with hyperglycemia; B96.1 Klebsiella pneumoniae [K. pneumoniae] as the cause of diseases classified elsewhere; E66.01 Morbid (severe) obesity due to excess calories; J45.909 Unspecified asthma, uncomplicated; E78.5 Hyperlipidemia, unspecified; N39.0 Urinary tract infection, site not specified; G47.33 Obstructive sleep apnea (adult) (pediatric); I10 Essential (primary) hypertension; Z98.84 Bariatric surgery status
CPT/HCPCS: 36415; 76870; 80048; 80053; 80061; 81001; 82948; 85014; 85018; 85025; 85027; 85610; 85730; 86850; 86900; 86901; 86923; 87077; 87088; 87186; 87426; 88305; 94664; 97039; A4344; G0378; J0330; J0690; J1100; J1815; J1885; J1940; J2001; J2175; J2250; J2270; J2274; J2405; J2704; J2710; J3010; J3490; J7030; J7120; P9016

== ENCOUNTER 2022-05-18 16:04 | Emergency (ER) | payer MEDICAID ==
[~2022-05-18] VITALS: Ht 190.5 cm; Wt 193.2 kg
[~2022-05-18 16:04] MED LIST changes: -0.9%NACL 1000ML 1,000 ML IV SCH; -CEFAZOLIN SODIUM 1 GM VIAL IVP SCH
[2022-05-18] MEDS ORDERED: MORPHINE 4 MG SYG IVP ONE (16:30)
[2022-05-18] MEDS ORDERED: 0.9% NACL 250ML 250 ML IV ONE (16:30)
[2022-05-18] MEDS ORDERED: ONDANSETRON 4MG INJ IVP ONE (16:30)
[2022-05-18] MEDS ORDERED: MORPHINE 4 MG SYG ONE (16:42)
[2022-05-18] MEDS ORDERED: ONDANSETRON 4MG INJ ONE (16:42)
[2022-05-18 17:01] LABS: BASOPHILS % (AUTO) 0.6 % (0.0-5.0); EOSINOPHILS % (AUTO) 1.5 % (0.0-8.0); LYMPHOCYTES % (AUTO) 14.8 % (21.0-51.0); MEAN CORPUSCULAR HEMOGLOBIN 27.7 pg (27.0-33.0); MEAN CORPUSCULAR HGB CONC 31.8 g/dL (32.0-36.0); MEAN CORPUSCULAR VOLUME 87.2 fL (79-99); MONOCYTES % (AUTO) 7.3 % (3.0-13.0); PLATELET COUNT (AUTO) 338 K/uL (130-400); RED BLOOD CELL COUNT(AUTO) 3.21 MIL/uL (4.50-6.20); RED CELL DISTRIBUTION WIDTH 14.2 % (11.0-15.5); WHITE BLOOD COUNT (AUTO) 8.6 K/uL (4.8-10.8)
[2022-05-18 17:09] LABS: POTASSIUM 3.8 mmol/L (3.5-5.1)
[2022-05-18 17:16] LABS: ALBUMIN 2.6 g/dL (3.5-5.0); TOTAL PROTEIN, SERUM 6.3 g/dL (6.0-8.3)
[2022-05-18 17:54] VITALS: BP 112/50
[2022-05-18] MEDS ORDERED: DOCU-116 PO (18:04)
[2022-05-18] MEDS ORDERED: ACET-2079 PO (18:04)
== END 2022-05-18 18:57 | disposition home or self-care (01) ==
LOC: EDH 16:04
DX: R19.00 Intra-abdominal and pelvic swelling, mass and lump, unspecified site (principal); L76.82 Other postprocedural complications of skin and subcutaneous tissue; N50.89 Other specified disorders of the male genital organs; I10 Essential (primary) hypertension; E11.9 Type 2 diabetes mellitus without complications; Z98.890 Other specified postprocedural states; Z88.2 Allergy status to sulfonamides; Z79.899 Other long term (current) drug therapy; Z79.84 Long term (current) use of oral hypoglycemic drugs; Z79.51 Long term (current) use of inhaled steroids
CPT/HCPCS: 99284; 96374; 96361; 96375; 80053; 85025; 36415; 76870; J2405; J2270; J7050

== ENCOUNTER → 2022-05-20 | Outpatient (CLI) | payer MEDICAID ==
[~2022-05-20] MED LIST changes: +ACET-2079 PO; +DOCU-116 PO
== END | disposition home or self-care (01) ==
LOC: RAH 08:44
PROVIDERS: ATTEND Surgery
DX: L76.32 Postprocedural hematoma of skin and subcutaneous tissue following other procedure (principal)
CPT/HCPCS: 76705; 76882

== ENCOUNTER → 2022-05-24 | Outpatient (CLI) | payer MEDICAID | END | disposition home or self-care (01) | LOC: RAH 09:09 | PROVIDERS: ATTEND Surgery | DX: L76.82 Other postprocedural complications of skin and subcutaneous tissue (principal); Y83.8 Other surgical procedures as the cause of abnormal reaction of the patient, or of later complication, without mention of misadventure at the time of the procedure | CPT/HCPCS: 10005; 87071; 87077; 87186; 87205; A4215 ×2; 76942 ==

== ENCOUNTER 2022-07-02 01:58 | Emergency (ER) | payer MEDICAID ==
[~2022-07-02] VITALS: Ht 190.5 cm; Wt 203.8 kg
[2022-07-02] MEDS ORDERED: LACTATED RINGERS 1000ML 1,000 ML IV ONE (02:30)
[2022-07-02 02:38] LABS: BASOPHILS % (AUTO) 0.5 % (0.0-5.0); EOSINOPHILS % (AUTO) 1.1 % (0.0-8.0); MEAN CORPUSCULAR HEMOGLOBIN 25.1 pg (27.0-33.0); MEAN CORPUSCULAR HGB CONC 29.3 g/dL (32.0-36.0); MEAN CORPUSCULAR VOLUME 85.5 fL (79-99); MONOCYTES % (AUTO) 6.5 % (3.0-13.0); NEUTROPHILS % (AUTO) 66.9 % (40.0-77.0); PLATELET COUNT (AUTO) 264 K/uL (130-400); RED BLOOD CELL COUNT(AUTO) 3.51 MIL/uL (4.50-6.20); RED CELL DISTRIBUTION WIDTH 15.9 % (11.0-15.5); WHITE BLOOD COUNT (AUTO) 6.3 K/uL (4.8-10.8)
[2022-07-02 02:50] LABS: CREATININE 1.3 mg/dL (0.5-1.5); POTASSIUM 4.4 mmol/L (3.5-5.1)
[2022-07-02 02:54] LABS: ALBUMIN 3.1 g/dL (3.5-5.0); TOTAL PROTEIN, SERUM 7.2 g/dL (6.0-8.3)
[2022-07-02] MEDS ORDERED: IOHEXOL 350 MG/ML 100ML INFUS..BTL IV ONE (03:30)
[2022-07-02 06:36] VITALS: BP 112/57
[2022-07-02] MEDS ORDERED: RIFA200T2 PO (06:57)
[2022-07-02] MEDS ORDERED: BISM-155 PO (06:57)
== END 2022-07-02 07:10 | disposition home or self-care (01) ==
LOC: EDH 01:58
DX: A04.72 Enterocolitis due to Clostridium difficile, not specified as recurrent (principal); E11.9 Type 2 diabetes mellitus without complications; E78.00 Pure hypercholesterolemia, unspecified; G47.30 Sleep apnea, unspecified; I10 Essential (primary) hypertension; J45.909 Unspecified asthma, uncomplicated; Z88.1 Allergy status to other antibiotic agents; Z88.2 Allergy status to sulfonamides; Z79.899 Other long term (current) drug therapy; Z98.890 Other specified postprocedural states; Z79.84 Long term (current) use of oral hypoglycemic drugs
CPT/HCPCS: 99285; 71275; 96360; 82150; 80053; 83690; 85025; 36415; 74177; 93005; J7120; Q9967

== ENCOUNTER → 2022-08-18 | Outpatient (CLI) | payer MEDICAID ==
[~2022-08-18] MED LIST changes: +BISM-155 PO; +RIFA200T2 PO
== END | disposition home or self-care (01) ==
LOC: RAH 12:57
PROVIDERS: ATTEND Surgery
DX: R10.9 Unspecified abdominal pain (principal)
CPT/HCPCS: 74176

== ENCOUNTER 2022-09-06 08:20 | Day surgery (SDC) | payer MEDICAID ==
[2022-09-02 09:44] LABS: BASOPHILS % (AUTO) 0.4 % (0.0-5.0); EOSINOPHILS % (AUTO) 0.6 % (0.0-8.0); HEMATOCRIT 36.6 % (42-54); LYMPHOCYTES % (AUTO) 18.6 % (21.0-51.0); MEAN CORPUSCULAR HEMOGLOBIN 24.7 pg (27.0-33.0); MEAN CORPUSCULAR HGB CONC 29.8 g/dL (32.0-36.0); MEAN CORPUSCULAR VOLUME 82.8 fL (79-99); MONOCYTES % (AUTO) 7.2 % (3.0-13.0); NEUTROPHILS % (AUTO) 71.9 % (40.0-77.0); PLATELET COUNT (AUTO) 216 K/uL (130-400); RED BLOOD CELL COUNT(AUTO) 4.42 MIL/uL (4.50-6.20); RED CELL DISTRIBUTION WIDTH 17.5 % (11.0-15.5); WHITE BLOOD COUNT (AUTO) 6.9 K/uL (4.8-10.8)
[2022-09-02 09:55] LABS: CREATININE 1.1 mg/dL (0.5-1.5); POTASSIUM 4.6 mmol/L (3.5-5.1)
[2022-09-02 09:57] LABS: INR 0.99 (0.85-1.15); PROTHROMBIN TIME 10.8 SEC (9.6-11.6)
[2022-09-02 09:58] LABS: PARTIAL THROMBOPLASTIN TIME 31.6 SEC (26.3-35.5)
[2022-09-02 10:05] VITALS: BP 133/70
[~2022-09-06] VITALS: Ht 190.5 cm; Wt 199.1 kg
[2022-09-06] VITALS (14 sets, daily range): BP systolic 109–138; BP diastolic 50–75
[~2022-09-06 08:20] MED LIST changes: +0.9%NACL 1000ML 1,000 ML IV ONE; -ACET-2079 PO; +APIX5TAB PO; -BISM-155 PO; +CEFAZOLIN SODIUM 2 GM VIAL IVPB SCH; -RIFA200T2 PO
[2022-09-06] MEDS ORDERED: LIDOCAINE PF 100MG/5ML (2%) SYRINGE 5ML ONE (09:26)
[2022-09-06] MEDS ORDERED: GLYCOPYRROLATE 1 MG/5 ML SYRINGE ONE (09:26)
[2022-09-06] MEDS ORDERED: DEXAMETHASONE SOD PHOSPHATE 10MG/ML 1ML VIAL ONE (09:26)
[2022-09-06] MEDS ORDERED: SUCCINYLCHOLINE 200MG/10ML SYR ONE (09:26)
[2022-09-06] MEDS ORDERED: ONDANSETRON 4MG INJ ONE ×2 (09:26→11:06)
[2022-09-06] MEDS ORDERED: MIDAZOLAM HCL 1 MG/ML 2ML VIAL ONE (09:27)
[2022-09-06] MEDS ORDERED: ROCURONIUM 10MG/1ML SYR 10 MG/ML ML ONE (09:27)
[2022-09-06] MEDS ORDERED: NEOSTIGMINE 5MG/5ML SYR IV ONE (09:27)
[2022-09-06] MEDS ORDERED: FENTANYL CITRATE PF 50 MCG/1 ML 2ML VIAL ONE (09:27)
[2022-09-06] MEDS ORDERED: PROPOFOL 10 MG/ML 20ML VIAL IV ONE (09:27)
[2022-09-06 09:29] LABS: HEMATOCRIT 35.2 % (42-54); MEAN CORPUSCULAR HEMOGLOBIN 24.7 pg (27.0-33.0); MEAN CORPUSCULAR HGB CONC 30.1 g/dL (32.0-36.0); MEAN CORPUSCULAR VOLUME 82.1 fL (79-99); RED BLOOD CELL COUNT(AUTO) 4.29 MIL/uL (4.50-6.20); RED CELL DISTRIBUTION WIDTH 17.4 % (11.0-15.5); WHITE BLOOD COUNT (AUTO) 5.5 K/uL (4.8-10.8)
[2022-09-06] MEDS ORDERED: KETOROLAC 30MG VIAL (30MG/ML) ONE (11:06)
[2022-09-06] MEDS ORDERED: MEPERIDINE-PF 25 MG/ML SYG ONE (11:07)
== END 2022-09-06 12:30 | disposition home or self-care (01) ==
LOC: DAH 08:20
PROVIDERS: ATTEND Surgery
DX: L02.11 Cutaneous abscess of neck (principal); Z20.822 Contact with and (suspected) exposure to COVID-19; L02.211 Cutaneous abscess of abdominal wall; E66.01 Morbid (severe) obesity due to excess calories; I10 Essential (primary) hypertension; E11.9 Type 2 diabetes mellitus without complications; G47.30 Sleep apnea, unspecified; J45.909 Unspecified asthma, uncomplicated; Z98.84 Bariatric surgery status; Z90.89 Acquired absence of other organs; Z98.890 Other specified postprocedural states; Z82.49 Family history of ischemic heart disease and other diseases of the circulatory system; Z83.3 Family history of diabetes mellitus; Z68.43 Body mass index [BMI] 50.0-59.9, adult; Z79.84 Long term (current) use of oral hypoglycemic drugs; Z79.01 Long term (current) use of anticoagulants; Z79.899 Other long term (current) drug therapy; Z88.8 Allergy status to other drugs, medicaments and biological substances; Z86.711 Personal history of pulmonary embolism
CPT/HCPCS: 87426; 80048; 85025; 85610; 85730; 36415 ×2; 93005; 11042; 97606; 85027; 87070; 87076; 87077 ×2; 87186 ×2; 82948 ×3; A4663; J7030 ×2; J3010; J0330; J3490 ×3; J1100; J2710; J2250; J2405 ×2; J1885; J2175; J0690; A4215; A4223; A4222; A4221; A4600; A9272; J2001; J2704

== ENCOUNTER 2022-09-29 10:00 | Emergency (ER) | payer MEDICAID ==
[~2022-09-29] VITALS: Ht 190.5 cm; Wt 190.5 kg
[~2022-09-29 10:00] MED LIST changes: -0.9%NACL 1000ML 1,000 ML IV ONE; -APIX5TAB PO; -CEFAZOLIN SODIUM 2 GM VIAL IVPB SCH
[2022-09-29 10:48] LABS: BASOPHILS % (AUTO) 0.5 % (0.0-5.0); EOSINOPHILS % (AUTO) 5.7 % (0.0-8.0); HEMATOCRIT 38.9 % (42-54); LYMPHOCYTES % (AUTO) 18.9 % (21.0-51.0); MEAN CORPUSCULAR HEMOGLOBIN 24.9 pg (27.0-33.0); MEAN CORPUSCULAR HGB CONC 31.1 g/dL (32.0-36.0); MONOCYTES % (AUTO) 7.2 % (3.0-13.0); NEUTROPHILS % (AUTO) 66.9 % (40.0-77.0); PLATELET COUNT (AUTO) 236 K/uL (130-400); RED BLOOD CELL COUNT(AUTO) 4.86 MIL/uL (4.50-6.20); RED CELL DISTRIBUTION WIDTH 18.4 % (11.0-15.5); WHITE BLOOD COUNT (AUTO) 6.5 K/uL (4.8-10.8)
[2022-09-29 10:58] LABS: APPEARANCE,URINE CLOUDY (CLEAR); BILIRUBIN,URINE NEGATIVE (NEGATIVE); COLOR,URINE YELLOW (YELLOW); GLUCOSE, URINE (UA) NEGATIVE (NEGATIVE); KETONES,URINE NEGATIVE (NEGATIVE); LEUKOCYTE ESTERASE ,URINE 500 Leu/uL (NEGATIVE); NITRATE,URINE 1+ (NEGATIVE); PH,URINE 5.5 (5.0-8.0); PROTEIN,URINE 10 mg/dL (NEGATIVE); UROBILINOGEN,URINE 0.2 mg/dL (0.2-1.0)
[2022-09-29 10:59] LABS: POTASSIUM 4.2 mmol/L (3.5-5.1)
[2022-09-29 11:02] LABS: BACTERIA,URINE MOD /HPF (None Seen); MUCUS,URINE RARE LPF (None Seen); SQUAMOUS EPITHELIAL CELL,UR FEW /HPF (0-2); WBC,URINE TNTC /HPF (0-1)
[2022-09-29 11:03] LABS: ALBUMIN 3.1 g/dL (3.5-5.0); MAGNESIUM 1.8 mg/dL (1.80-2.40); TOTAL PROTEIN, SERUM 6.6 g/dL (6.0-8.3)
[2022-09-29 13:46] VITALS: BP 115/64
[2022-09-29] MEDS ORDERED: NITR-103 PO (14:23)
[2022-09-29] MEDS ORDERED: CEFTRIAXONE 1G VIAL IVP ONE (15:00)
== END 2022-09-29 15:28 | disposition home or self-care (01) ==
LOC: EDH 10:00
DX: N39.0 Urinary tract infection, site not specified (principal); J45.909 Unspecified asthma, uncomplicated; E11.9 Type 2 diabetes mellitus without complications; E78.00 Pure hypercholesterolemia, unspecified; I10 Essential (primary) hypertension; Z79.51 Long term (current) use of inhaled steroids; Z79.84 Long term (current) use of oral hypoglycemic drugs; Z79.899 Other long term (current) drug therapy; Z88.1 Allergy status to other antibiotic agents; Z88.2 Allergy status to sulfonamides
CPT/HCPCS: 99285; 74176; 96374; 83735; 80053; 83690; 85025; 87077; 87088; 87186; 81001; 36415; J0696

== ENCOUNTER → 2022-10-22 | Outpatient (CLI) | payer MEDICAID ==
[~2022-10-22] MED LIST changes: +IOHEXOL 350 MG/ML 100ML INFUS..BTL IV ONE; +NITR-103 PO
== END | disposition home or self-care (01) ==
LOC: RAH 11:24
PROVIDERS: ATTEND Surgery
DX: R10.9 Unspecified abdominal pain (principal)
CPT/HCPCS: 74177; Q9967

== ENCOUNTER 2023-03-06 20:15 | Emergency (ER) | payer MEDICAID ==
[~2023-03-06] VITALS: Ht 190.5 cm; Wt 204.1 kg
[~2023-03-06 20:15] MED LIST changes: -IOHEXOL 350 MG/ML 100ML INFUS..BTL IV ONE
[2023-03-06 22:22] LABS: INR 0.94 (0.85-1.15); PROTHROMBIN TIME 10.9 SEC (9.6-11.6)
[2023-03-06 22:23] LABS: PARTIAL THROMBOPLASTIN TIME 30.8 SEC (26.3-35.5)
[2023-03-07] MEDS ORDERED: MORPHINE 2 MG SYG IM ONE
[2023-03-07 02:40] VITALS: BP 130/76; PULSE 67; RESP 18; O2SAT 97
[2023-03-07] MEDS ORDERED: DIAZEPAM 5 MG/ML 2 ML SYG IVP ONE (03:00)
[2023-03-07] MEDS ORDERED: CYCL10TA16 PO (03:14)
[2023-03-07] MEDS ORDERED: ACET-2079 PO (03:14)
[2023-03-07] MEDS ORDERED: MELO-106 PO (03:14)
== END 2023-03-07 03:32 | disposition home or self-care (01) ==
LOC: EDH 20:15
DX: M54.2 Cervicalgia (principal); M25.512 Pain in left shoulder; M25.552 Pain in left hip; M62.830 Muscle spasm of back; I10 Essential (primary) hypertension; E78.00 Pure hypercholesterolemia, unspecified; E11.9 Type 2 diabetes mellitus without complications; J45.909 Unspecified asthma, uncomplicated; Z88.2 Allergy status to sulfonamides; Z88.8 Allergy status to other drugs, medicaments and biological substances; Z79.84 Long term (current) use of oral hypoglycemic drugs; Z79.899 Other long term (current) drug therapy; W18.30XA Fall on same level, unspecified, initial encounter; Y93.01 Activity, walking, marching and hiking; Y92.89 Other specified places as the place of occurrence of the external cause; Y99.8 Other external cause status
CPT/HCPCS: 99285; 70450; 71045; 84484; 85610; 85730; 36415; 73502; 73030; 93005; 96374; 72125; 73060; 96372; J2270; J3360

== ENCOUNTER 2024-10-11 12:42 | Emergency (ER) | payer OTHER, BC ==
[~2024-10-11] VITALS: Ht 193 cm; Wt 191.9 kg
[~2024-10-11 12:42] MED LIST changes: +APIX5TAB PO; -BUDE10.2 IH; +CYCL10TA16 PO; -DOCU-116 PO; +FLUT16H NASAL; +FLUT1BLS3 IH; +LINA290C PO; -NITR-103 PO; -PREG300C19 PO; +PREG300C20 PO
--- NOTE | 2024-10-11 15:20 | HMCIMG ---
US VENOUS DOPPLER UNILATERAL HISTORY: DVT COMPARISON: None TECHNIQUE: Left lower extremity venous Doppler ultrasound study was performed. FINDINGS: The left common femoral, femoral, popliteal, and posterior tibial veins are visualized. Normal flow with augmentation and compressibilities are demonstrated. Left greater saphenous vein is patent. There is a lymph node in the left popliteal fossa measuring 2 x 1.1 x 1.9 cm. There is possible seroma measuring 4.3 x 2 cm the left calf region. IMPRESSION: 1. No evidence of deep venous thrombosis is seen.
[2024-10-11] MEDS: morPHINE 2 MG SYG IVP STA (15:46)
[2024-10-11] MEDS: ondanSETRON 4MG INJ IVP STA (15:46)
--- NOTE | 2024-10-11 16:06 | ERN ---
ED Note History of Present Illness Stated Complaint: LEFT KNEE PAIN POSSIBLE BLOOD CLOT Chief Complaint: Lower Extremity Pain/Injury Time Seen by MD: 12:47 Time Seen by Midlevel: 12:50 Dictation: 53-year-old year old male with a history of hypertension, diabetes, cholesterol, morbid obesity coming in with complaints of pain to the left knee. Patient states the pain started about two days ago. Patient states she had recent surgery in September for a meniscus injury. States today he went to his worker's co mp doctor and was told to come here to rule out a clot due to his knee pain. Patient states pain radiates down to his calf area. Denies having any recent fevers, nausea, vomiting. Allergies: Coded Allergies: sulfamethoxazole (Unverified Allergy, Mild, HIVES, 10/29/21) trimethoprim (Unverified Allergy, Mild, HIVES, 10/29/21) Home Meds Active Scripts Cyclobenzaprine HCl (Flexeril) 10 Mg Tab, 10 MG PO TID for muscle sstiffness, #90 TAB 2 Refills Prov:MARYELLEN ALANIS Sr., MD 03/07/23 Reported Medications Fluticasone Propionate (Flonase Nasal [place]) 50 Mcg/Actuation [place], 50 MCG NASAL HS, SPRAY 07/03/23 Fluticasone/Umeclidin/Vilanter (Trelegy Ellipta 100-62.5-25) 100-62.5 Blst.w.dev, 1 EACH IH HS 07/03/23 Apixaban (Eliquis) 5 Mg Tablet, 5 MG PO BID, TAB 07/03/23 Linaclotide (Linzess) 290 Mcg Capsule, 290 MCG PO DAILYBKFST, CAP 07/03/23 Atorvastatin Calcium (Atorvastatin Calcium) 10 Mg Tablet, 10 MG PO DAILY, TAB 04/11/22 Albuterol Sulfate (Proair Hfa) 8.5 Gm Hfa.aer.ad, 2 PUFF IH HS 10/29/21 Pregabalin (Pregabalin) 300 Mg Capsule, 300 MG PO BID, CAP 10/29/21 Losartan Potassium (Losartan Potassium) 25 Mg Tablet, 25 MG PO DAILY, TAB 10/29/21 Metformin HCl (Metformin HCl) 1,000 Mg Tablet, 1000 MG PO BID, TAB 10/29/21 Past Medical History Past Medical History: Diabetes-Type II, High Cholesterol, Hypertension Additional Past Medical Hx: SLEEP APNEA, PE, ESBL Surgical History: Other, Bariatric Surgery Surgical History Other: TUMERIN PRATER, LEFT KNEE 09/04/24 Social History: Negative, Lives with family Review of System Dictation Constitutional: Negative for fever,chills, and weight loss Eyes: Negative for injury, pain,redness, and discharge ENT: Negative for injury,pain or swelling Cardiovascular: Negative for chest pain, palpitations, and edema Respiratory: Negative for shortness of breath, cough, and wheezing, Abdomen/GI: Negative for abdominal pain, nausea, vomiting, diarrhea, and constipation Back: Negative for injury and pain : Negative for injury, bleeding and discharge MS/Extremity: Negative for injury and deformity complaining of left knee pain Skin: Negative for rash, and discoloration Neuro: Negative for headache, weakness, numbness, tingling, and seizure Psych: Negative for suicide ideation, homicidal ideation, and hallucinations Review of Systems: was completed Initial Vital Sign VS Vital Signs Date Time Temp Pulse Resp B/P (MAP) Pulse Ox O2 Delivery O2 Flow Rate FiO2 10/11/24 13:19 97.9 67 20 102/58 96 Room Air 0 10/11/24 13:50 21 Physical Exam Dictation General: awake, alert, NAD Head/Face: Normocephalic, atraumatic Eyes: PERRL, EOMI, vision at baseline ENT: oral cavity clear, TMs clear, no signs of infection Neck: Trachea midline, supple, no nuchal rigidity Cardiovascular: RRR, normal S1/S2, No MRGs, no JVD Respiratory: CTAB, no respiratory distress, No rales or wheezes Abdomen: Soft, non-tender, non-distended, normal bowel sounds, no guarding or rebound. Skin: Warm, dry, normal turgor, no rash, there is no obvious abscess, fluctuance, redness, streaking. MS/Extremity: Pulses equal, no cyanosis, neurovascular intact, FROM Neuro: COAx4, GCS 15, strength 5/5, CN 2-12 intact, normal cerebellar exam, normal gait, Psych: Normal behavior, mood, and affect normal Results (Laboratory/Radiology) Ultrasound Comment: [facility] [address] [place] [id number] IMAGING REPORT Signed PATIENT: ROSHAN BURCH#: [id number] : 1970 SEX: M AGE: 53 LOCATION: [facility] ORDER [id number] STATUS: REG ER REPORT#: [id number] SERVICE [id number] REASON: r/o dvt ORDERING PHYSICIAN: ABELARDO AVALOS NP PROCEDURE: VENOUS UNI - US VENOUS DOPPLER UNILATERAL US VENOUS DOPPLER UNILATERAL HISTORY: DVT COMPARISON: None TECHNIQUE: Left lower extremity venous Doppler ultrasound study was performed. FINDINGS: The left common femoral, femoral, popliteal, and posterior tibial veins are visualized. Normal flow with augmentation and compressibilities are demonstrated. Left greater saphenous vein is patent. There is a lymph node in the left popliteal fossa measuring 2 x 1.1 x 1.9 cm. There is possible seroma measuring 4.3 x 2 cm the left calf region. IMPRESSION: 1. No evidence of deep venous thrombosis is seen. DICTATED BY: MARIAN CASTILLO MD DATE: 10/11/24 1516 ELECTRONICALLY SIGNED BY: MARIAN CASTILLO MD DATE: 10/11/24 1520 ED Course ED Course Orders Procedure Category Date Status Time Us Venous Doppler US 10/11/24 Resulted Unilateral 13:38 Morphine 2mg Syg PHA 10/11/24 Complete (Morphine 2mg Syg) 14:20 Ondansetron 4mg Inj PHA 10/11/24 Complete (Zofran 4mg Inj) 14:20 Ketorolac PHA 10/11/24 Logged Tromethamine 15mg/Ml 15:59 Current Medications Medications (Trade) Dose Ordered Sig/Corin Route PRN Reason Start Time Stop Time Status Last Admin Dose Admin Morphine Sulfate (morPHINE 2MG SYG) 2 mg ONCE STAT IVP 10/11/24 14:20 10/11/24 14:22 DC 10/11/24 15:46 Ondansetron HCl (zoFRAN 4MG INJ) 4 mg ONCE STAT IVP 10/11/24 14:20 10/11/24 14:22 DC 10/11/24 15:46 Vital Signs Date Time Temp Pulse Resp B/P (MAP) Pulse Ox O2 Delivery O2 Flow Rate FiO2 10/11/24 13:50 98.4 69 25 126/70 95 Room Air* 0 21 10/11/24 13:19 97.9 67 20 102/58 96 Room Air 0 Medical Decision Making MDM MDM:53-year-old year old male with a history of hypertension, diabetes, cholesterol, morbid obesity coming in with complaints of pain to the left knee. Patient states the pain started about two days ago. Patient states she had recent surgery in September for a meniscus injury. States today he went to his worker's comp doctor and was told to come here to rule out a clot due to his knee pain. Patient states pain radiates down to his calf area. Denies having any recent fevers, nausea, vomiting. Ultrasound of the left leg is negative for any DVT however there is a seroma measuring 4.3 x 2 cm on the left calf region. Dr. Nikia FRANCOIS MD spoke to patient's surgeon. Surgeon stated patient can follow up tomorrow morning in his office. Information was conveyed to patient and family member at bedside. Agreed to follow up in the morning. Discussed on signs and symptoms when to return back to the ER. Differential diagnosis: Cellulitis, abscess, DVT Rationale: Tests considered and ordered secondary to shared decision making include: Previous outside records reviewed: Old ER visits. Risk of complication and/or morbidity or mortality of patient management: None Medications-Per medication reconciliation Need for hospitalization: Patient does not meet criteria for hospitalization. Need for emergency major/minor surgery: No There are no social concerns with this patient. Prescription drug management Prescriptions will include symptomatic care Patient's prior external medical records from other ER visits were reviewed by me as indicated. Prior testing and results from previous visits were reviewed. Prior tests were taken into account with medical decision making and resource utilization, independent historian/historians were used to obtain complete medical history. I independently interpreted the test that were performed, results were reviewed by me and considered findings on radiology if ordered. Medical management and examination interpretation discussions were had by me with other qualified healthcare professionals as indicated for the patient's care. DX & DISP Disposition: Discharge Departure Impression: Primary Impression: Seroma Condition: Stable Additional Instructions: Follow up as instructed by your surgeon tomorrow morning. Take you home medications for pain. Return if you develop worsening symptoms like redness, streaking of the your area, shortness a breath, nausea, vomiting or fever. Referrals: MIKEY JOYNER MD (PCP) Time of Disposition: 16:05 I have reviewed the case, and I agree with, Diagnosis and Plan ABELARDO AVALOS NP Oct 11, 2024 16:06
[2024-10-11 16:38] VITALS: BP 122/69; PULSE 68; RESP 16; TEMP 98.3; O2SAT 98
[2024-10-11] MEDS: ketOROlac 15MG/ML VIAL (15MG/ML) IV STA (16:40)
== END 2024-10-11 16:52 | disposition home or self-care (01) ==
LOC: EDH 12:42 → EEVIPCON 12:42 → EDH 16:52
DX: S80.02XA Contusion of left knee, initial encounter (principal); M79.605 Pain in left leg; E11.9 Type 2 diabetes mellitus without complications; E78.00 Pure hypercholesterolemia, unspecified; G47.30 Sleep apnea, unspecified; I10 Essential (primary) hypertension; Z79.01 Long term (current) use of anticoagulants; Z79.84 Long term (current) use of oral hypoglycemic drugs; Z79.899 Other long term (current) drug therapy; Z88.1 Allergy status to other antibiotic agents; Z88.2 Allergy status to sulfonamides; X58.XXXA Exposure to other specified factors, initial encounter; Y93.89 Activity, other specified; Y92.89 Other specified places as the place of occurrence of the external cause; Y99.8 Other external cause status
CPT/HCPCS: 99285; 96374; 93971; 96375; J1885; J2270; J2405